=== PATIENT | male | born 1975 | race Caucasian/White ===

== ENCOUNTER → 2017-05-06 | Outpatient (CLI) | payer OTHER ==
--- NOTE | 2017-05-06 16:32 | VAS ---
HISTORY: Left leg swelling Study: Venous Doppler Comparison: None TECHNIQUE: Multiple ramirez scale and color flow Doppler images of the deep venous system were obtained of the left lower extremity. FINDINGS: There is normal respiratory phasicity, compression and augmentation of the lower extremity veins with out evidence of acute DVT. IMPRESSION: 1. Negative for DVT. Reported By:
== END ==
LOC: RAD 15:38
PROVIDERS: ATTEND Internal Medicine
DX: M79.669 Pain in unspecified lower leg (principal)
CPT/HCPCS: 93971